=== PATIENT | female | born 1965 | race Caucasian/White ===

== ENCOUNTER 2019-03-21 07:38 | Inpatient (IN) ==
--- NOTE | 2019-03-10 10:59 | Anesthesiology Consultation ---
Date of Service March 10, 2019 Assessment & Plan (1) Encounter for pre-operative examination: - Check test AM DOS - Patient requests avoiding narcotics for post-op pain management if possible. Chart Review Chart Review: Acceptable Risk for Surgery and Patient seen in Pre Admission Testing Teaching & Discussion Pre-Anesthesia Teaching/Discussion Notes: Instructed NPO after midnight before surgery,except medications with 15 cc of water. Medication instructions provi ded according to the PAT guidelines. History Surgery Operation Date: 03/21/19 13:50 Proposed Procedures p Total Abdominal Hysterectomy - Mason Mathew MD Height/Weight Height: 5 ft Weight: 79.8 kg Allergies Allergy/AdvReac Type Severity Reaction Status Date / Time meperidine Allergy Unknown Hives Verified 03/03/19 12:12 morphine Allergy Unknown ?Hives Verified 03/10/19 11:14 codeine Allergy Hives Verified 03/10/19 11:14 Medications Home Medications Medication Instructions Recorded Confirmed Last Taken Thyroid Supplement 1 tab PO HS 03/03/19 Unknown calcium carbonate-vitamin D3 1 tab PO QAM 03/03/19 03/03/19 Unknown [Calcium 500 + D] glucosamine sulfate [Glucosamine] 500 mg PO QPM 03/03/19 03/03/19 Unknown turmeric 1 cap PO QAM 03/03/19 03/03/19 Unknown Past Medical History Medical History Fibroids Hypothyroidism Obesity Past Surgical History Surgical History History of arthroscopy KNEE History of section x3 History of cholecystectomy Past Anesthesia History No Family Hx of Anesthesia Complications and Other Per patient, [id number] told the patient that she had difficulty with anesthesia induction with c/s done emergently under GA but no issues with subsequent surgeries. History of PONV No Motion Sickness Screening History of Motion Sickness: Yes Social History Smoking Status: Never smoker Do You Dip or Chew Tobacco: No Hx Alcohol Use: Yes Alcohol type: hard liquor alcohol intake frequency: a few times a month Hx Substance Use: No substance use type: does not use Exercise / Class Metabolic Activity II 4-5 Yardwork/Stairs/Walk up hill Review of Systems Patient denies chest pain, shortness of breath, dyspnea on exertion, cough, wheezing, palpitations. Physical Exam Vital Signs VITALS BP 124/81 P 80 TEMP 98.2 SP02 94%RA RESP 18 PHYSICAL Full neck and c-spine range of motion. Full TMJ range of motion. TMD 3 finger breaths Mallampati Score 2 Dentition: upper front left permanent implant Lungs: clear throughout to auscultation Cardiac: regular rate and rhythm, no murmurs noted Spine: normal Carotid arteries: negative bruit Extremities: no edema Testing Electrocardiogram Date: 03/10/19 NSR at 73bpm. Laboratory Results 03/10/19 11:27 03/10/19 11: Blood Type A Positive 03/10/19 11: Antibody Screen NEGATIVE 03/10/19 11: PT 10.1 Seconds (9.0-12.0) 03/10/19 11: INR 1.0 (0.9-1.1) 03/10/19 11: APTT 23.6 Seconds (21.0-31.0) 03/10/19 11:27
--- NOTE | 2019-03-10 11:00 | PAT Medication Instructions ---
Medication Instructions Date of Service March 10, 2019 Home Medications Thyroid Supplement 1 tab PO HS calcium carbonate-vitamin D3 1 tab PO QAM glucosamine sulfate [Glucosamine] 500 mg PO QPM turmeric 1 cap PO QAM STOP taking 2 weeks before surgery (or as soon as possible if surgery is within 2 weeks) glucosamine sulfate [Glucosamine] 500 mg PO QPM turmeric 1 cap PO QAM DO NOT take the morning of surgery calcium carbonate-vitamin D3 1 tab PO QAM Take evening before surgery Thyroid Supplement 1 tab PO HS Other Notes If you have any questions please call us at [phone] or [phone] or [phone] or [phone]
[2019-03-10 11:52] LABS: Basophils # (auto) 0.04 K/uL (0-0.2); Basophils % (auto) 0.5 %; Eosinophils # (auto) 0.11 K/uL (0-0.5); Eosinophils % (auto) 1.5 %; Hemoglobin 13.5 g/dL (12.0-16.0); Immature Granulocytes # (auto) 0.03 K/uL (0.00-0.02); Immature Granulocytes % (auto) 0.4 %; Lymphocytes # (auto) 1.89 K/uL (1.2-3.4); Lymphocytes % (auto) 25.1 %; Mean Corpuscular Hgb Conc 34.6 g/dL (32-36); Mean Corpuscular Volume 90.1 fL (80-100); Mean Platelet Volume 9.1 fL (7.4-10.4); Monocytes # (auto) 0.77 K/uL (0.11-0.59); Monocytes % (auto) 10.2 %; Neutrophils % (auto) 62.3 %; Platelet Count 267 K/uL (130-400); RDW Coefficient of Variation 13.3 % (11.5-14.5); RDW Standard Deviation 43.9 fL (36.4-46.3); Red Blood Count 4.33 M/uL (4.2-5.4); White Blood Count 7.54 K/uL (4.8-10.8)
[2019-03-10 12:06] LABS: Partial Thromboplastin Ratio 0.9; Partial Thromboplastin Time 23.6 Seconds (21.0-31.0); Prothrombin Time 10.1 Seconds (9.0-12.0)
--- NOTE | 2019-03-10 12:45 | History and Physical Report ---
DATE OF ADMISSION: 03/21/2019 CHIEF COMPLAINT: Pelvic pain, heavy vaginal bleeding with clotting, irregular bleeding. HISTORY OF PRESENT ILLNESS: The patient is a 54-year-old 5, para 3, who has had 1 ectopic, 1 spontaneous AB. She has had 3 sections. She has problems with heavy vaginal bleeding, clotting, severe cramps that have been going on for over 6 months. She has difficulty functioning when she has these heavy periods. Periods are lasting for over 5 days. She had a transvaginal ultrasound on 02/18/2019 which revealed an enlarged uterus with multiple fibroids and we were unable at that time to evaluate the endometrial stripe because of the shadowing out from the fibroid. She also complains of severe back pain with her periods. Presently, she is being scheduled for total abdominal hysterectomy with preservation of both ovaries. PAST MEDICAL HISTORY: Three children in good health. ALLERGIES: She has no drug allergies. No history of rheumatic fever, heart disease, heart murmur, diabetes, tuberculosis. PAST SURGICAL HISTORY: Had 3 C-sections and ectopic , wisdom teeth removed. SOCIAL HISTORY: No smoking, no excessive alcohol intake. 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 FAMILY HISTORY: Mom is 74, has an aortic aneurysm, has bad knees. Father at age 76, prostate cancer. One brother, diabetic, age 54. One sister 56 in good general health and 1 sister 57 in good general health. REVIEW OF SYSTEMS: She has occasional migraine headaches. PHYSICAL EXAMINATION: GENERAL: Well-developed, well-nourished 54-year-old white female, alert, oriented x3 and cooperative in no acute distress, appeared her stated age. EYES: Conjunctivae are pink. Sclerae white, no evidence of jaundice. EARS: Had normal light reflex bilaterally. NOSE: Had normal mucosa. Septum is midline. There were no polyps. THROAT: Had no erythema or evidence of infection. Teeth are in good state of repair. HEAD: Normocephalic, normal distribution of hair. NECK: Supple. Trachea midline. Thyroid is not enlarged. No adenopathy appreciated. Both carotids are of good intensity. CHEST: Clear to auscultation and percussion. No wheezes, rales or rhonchi appreciated. HEART: Had a regular rhythm. S1, S2 are normal. BREASTS: Normal. ABDOMEN: Soft and nontender. There is a well-healed Pfannenstiel incision. PELVIC: Revealed a normal-appearing cervix. Uterus was firm, irregular, 10-11 weeks' gestational size, tender. MUSCULOSKELETAL: Revealed no calf tenderness. IMPRESSIONS OF THIS CASE: Status post wisdom teeth removal, status post 3 C-sections, status post removal of ectopic and symptomatic fibroid uterus, pelvic pain.
[2019-03-10 13:06] LABS: Calcium 9.1 mg/dl (8.5-10.1); Creatinine Clr Calc Pharmacy 100.9 ml/min; Est GFR (African American) 120.8; Est GFR (Non-African American) 104.2; Potassium 3.9 mmol/L (3.5-5.1)
[~2019-03-21 07:38] MED LIST: LR 15ML/HR IV SCH
[2019-03-21] MEDS ORDERED: ROCURONIUM BROMIDE 10 MG/ML 5 ML VIAL ONE (09:51)
[2019-03-21] MEDS ORDERED: ONDANSETRON INJ 2 MG/ML 2 ML VIAL ONE (09:51)
[2019-03-21] MEDS ORDERED: MIDAZOLAM HCL 1 MG/ML 2ML VIAL ONE ×2 (09:51→10:05)
[2019-03-21] MEDS ORDERED: LIDOCAINE HCL 2% 2 ML VIAL/AMP(20MG/ML) INFIL ONE (09:51)
[2019-03-21] MEDS ORDERED: fentaNYL citrate 100 MCG/2 ML VIAL ONE ×2 (09:51→12:22)
[2019-03-21] MEDS ORDERED: PROPOFOL IV EMULSION 10 MG/ML 20 ML VIAL IV ONE (09:51)
[2019-03-21] MEDS ORDERED: DEXAMETHASONE SOD INJ 4 MG/ML VIAL ONE (09:51)
[2019-03-21] MEDS ORDERED: cefOXitin 2,000 MG in DEXTROSE 5% 50 ML IV STA (10:03)
--- NOTE | 2019-03-21 10:03 | History & Physical Bridge Note ---
Date of Service March 21, 2019 History & Physical Bridge Note I have examined the patient, reviewed the History & Physical and in the interval since the performance of the History & Physical I have noted the following changes of clinical significance: no changes noted
[2019-03-21] MEDS ORDERED: MoRPHine SULFATE PF 1 MG/ML 10 ML AMP/VIAL ONE (10:25)
[2019-03-21] MEDS ORDERED: cefOXitin 2,000 MG in DEXTROSE 5% 50 ML IV SCH (11:00)
[2019-03-21] MEDS ORDERED: ONDANSETRON INJ 2 MG/ML 2 ML VIAL IV PRN (11:06)
[2019-03-21] MEDS ORDERED: LACTATED RINGER'S 500 ML IV PRN (11:06)
[2019-03-21] MEDS ORDERED: KETOROLAC 30 MG/ML VIAL IV PRN (11:06)
[2019-03-21] MEDS ORDERED: NALOXONE HCL 0.08 MG in SYRINGE 1.8 ML IV PRN (11:06)
[2019-03-21] MEDS ORDERED: NALBUPHINE HCL INJ 10 MG/ML AMP IV PRN (11:06)
[2019-03-21] MEDS ORDERED: NALOXONE HCL 1 MG in SODIUM CHLORIDE 0.9% 1000ML 1,000 ML IV PRN (11:06)
[2019-03-21] MEDS ORDERED: ePHEDrine sulfate 50 MG/ML AMP IV PRN (11:06)
[2019-03-21] MEDS ORDERED: HYDROmorphone INJ 0.5 MG/0.5 ML SYR IV PRN (11:06)
[2019-03-21] MEDS ORDERED: MoRPHine SULFATE PF 1 MG/ML 10 ML AMP/VIAL INT SPINAL ONE (11:06)
[2019-03-21] MEDS ORDERED: DiphenhydrAMINE HCL 50 MG/ML VIAL IV PRN (11:06)
[2019-03-21] MEDS ORDERED: NALOXONE HCL 0.4 MG/1 ML VIAL/CARP IV PRN (11:06)
[2019-03-21] MEDS ORDERED: SODIUM CHLORIDE 0.9% 1000ML 1,000 ML IV SCH (11:15)
[2019-03-21] MEDS ORDERED: DC INTRASPINAL MORPHINE SCH (11:15)
[2019-03-21] MEDS ORDERED: NO NARCOTICS OR SEDATIVES SCH (11:15)
[2019-03-21] MEDS ORDERED: BISACODYL 10 MG SUPP PR PRN (13:07)
[2019-03-21] MEDS ORDERED: SENNA 8.6 MG TAB PO PRN (13:07)
[2019-03-21] MEDS ORDERED: MAGNESIUM HYDROXIDE SUSP 30 ML UDC PO PRN (13:07)
[2019-03-21] MEDS ORDERED: PROMETHAZINE HCL 6.25 MG in SODIUM CHLORIDE 0.9% 50 ML IV STA (13:20)
--- NOTE | 2019-03-21 14:42 | Anesthesiology Progress Note ---
Date of Service March 21, 2019 Anesthesia Post Procedure Vital Signs Vital Signs: Temp Pulse Pulse Pulse Resp BP BP 03/21/19 14:35 36.9 C 83 18 116/76 03/21/19 14:05 36.7 C 89 18 123/73 03/21/19 13:55 94 H 18 114/67 03/21/19 13:52 36.4 C L 03/21/19 13:51 79 21 03/21/19 13:50 77 18 112/68 03/21/19 13:46 78 17 03/21/19 13:45 79 16 114/74 03/21/19 13:41 79 15 03/21/19 13:40 79 16 115/69 03/21/19 13:35 81 15 03/21/19 13:30 82 23 117/74 03/21/19 13:26 78 13 119/65 03/21/19 13:25 90 20 03/21/19 13:22 87 20 03/21/19 13:21 84 16 03/21/19 13:20 84 18 03/21/19 13:16 84 13 113/71 03/21/19 13:15 90 20 03/21/19 13:11 90 18 03/21/19 13:10 88 13 121/75 03/21/19 13:06 83 14 03/21/19 13:05 93 H 16 111/71 03/21/19 13:01 83 17 03/21/19 13:00 84 16 108/74 03/21/19 12:57 82 16 03/21/19 12:56 37.3 C 89 87 15 109/69 109/69 03/21/19 08:10 37 C 78 20 119/74 Pulse Ox 03/21/19 14:35 96 03/21/19 14:05 95 03/21/19 13:55 100 03/21/19 13:52 99 03/21/19 13:51 99 03/21/19 13:50 100 03/21/19 13:46 100 03/21/19 13:45 98 03/21/19 13:41 100 03/21/19 13:40 100 03/21/19 13:35 99 03/21/19 13:30 100 03/21/19 13:26 98 03/21/19 13:25 100 04/26/19 13:22 91 03/21/19 13:21 91 03/21/19 13:20 93 03/21/19 13:16 94 03/21/19 13:15 98 03/21/19 13:11 100 03/21/19 13:10 100 03/21/19 13:06 100 03/21/19 13:05 100 03/21/19 13:01 100 03/21/19 13:00 100 03/21/19 12:57 03/21/19 12:56 03/21/19 08:10 97 Pain Intensity Abdomen: Pain Intensity: 0 Notes Mental Status: alert / awake / arousable and participated in evaluation Patient Amnestic to Procedure: Yes Nausea / Vomiting: adequately controlled Pain: adequately controlled Airway Patency, RR, SpO2: stable & adequate BP & HR: stable & adequate Hydration State: stable & adequate Anesthetic Complications: no major complications apparent and Pt Satisfied with anesthetic care
[2019-03-21] MEDS: D5W AND LACTATED RINGERS 1,000 ML IV SCH (19:18)
--- NOTE | 2019-03-21 22:32 | Operative Report ---
DATE OF OPERATION: 03/21/2019 PROCEDURE: Total abdominal hysterectomy. INDICATIONS FOR SURGERY: Enlarged fibroid uterus, postmenopausal bleeding. PREOPERATIVE DIAGNOSIS: Symptomatic fibroids, pathology pending. SURGEON: Amando Mathew MD ESTIMATED BLOOD LOSS: 100 mL. ANESTHESIA: Spinal narcotics and general. OPERATIVE FINDINGS AND PROCEDURE: The patient was brought to the OR table, correctly identified by armband and conversation. Spinal narcotics were administered, then general anesthesia was administered. Perineum and vagina were painted with Betadine paint. Catheter was used to empty the bladder, connected to gravity drainage. Lower abdomen was prepped with an alcohol based sterilizing solution, draped in the usual sterile fashion. A midline scar was excised from the abdomen. Incision was carried down to the anterior fascia by sharp dissection. Hemostasis was secured by electrocauterization. Fascia was incised vertically. Peritoneum was entered and then an O'Vic-O'Evans self-retraining retractor was placed into the uterine cavity. A bladder blade was placed and then a several moist laparotomy pads were used to retract the intestines and provide adequate exposure of the pelvic cavity. A large fibroid uterus was visualized consistent in size with a 14-15 weeks' gestational size uterus. Following exposure of the uterus, the uterus itself was grasped with a double tooth tenaculum and delivered through the incision. The round ligaments on either side were suture ligated distally, clamped approximately and then cut. Incision was made above the vesicouterine fold. The bladder had advanced on the lower uterine segment due to 2 previous C-sections where to carefully take down the bladder. After this, posterior leaves of the broad ligament on either side were punched through bluntly and the ovarian ligament was doubly ligated with a silk tie and then a clamp was clamped near the fundus of the uterus. The adnexa were cut free. The uterine vessels were skeletonized and then clamped with a curved Isa, cut with a stump and then doubly ligated with a chromic gut suture. Cardinal ligaments were clamped serially by advancing the bladder then serially sliding off the cervix, cutting the cardinals with a stump and ligating with a chromic gut suture. This was done in 3 steps because of the length of the cardinal ligament. The cervix was then shelled out with electrocautery, thus excising surgical specimen consisting of uterus and cervix, multiple fibroids. The angles of the vaginal cuff were suture ligated. The stumps of the cardinal ligaments on either side with a chromic gut suture, [id number] was used to approximate the vaginal mucosa, anterior to posterior on either edge of the cardinal ligament. Then, the middle of the vaginal mucosa was whipstitched open with a continuous interlocking suture of chromic catgut. The [place] drain with a safety pin was placed in the vagina. The other end was placed into the cul-de-sac. The round ligaments were brought down and tied into the vaginal cuff for support. Then, I reperitonealized the edges tacking both ovaries up high on the lateral pelvic wall and approximating the peritoneum front to back. Following this, we irrigated. Hemostasis was excellent. We then closed the abdominal wall. The abdominal wall was closed in layer. The peritoneum was closed with continuous suture of chromic catgut. The fascia was closed with 2 sutures of PDS, one anchored at the top of the fascial defect, the other anchored at the bottom of the fascial defect and the PDS was run from the bottom up to the middle and from the top down to the middle and then the sutures were tied to each other. The subcutaneous tissue was freed up. I used about 6 mattress sutures of silk to approximate the skin edges along with staple clips. Following this, hemostasis was good. The patient tolerated the procedure well. Urine output was adequate. I attest to the content of the Intraoperative Record and any orders documented therein. Any exception s are noted below.
[2019-03-22] MEDS ORDERED: Nursing to Pharmacy Communication ONE (03:00)
[2019-03-22] MEDS: D5W AND LACTATED RINGERS 1,000 ML IV SCH ×2 (03:00→11:09)
[2019-03-22] MEDS ORDERED: KETOROLAC 30 MG/ML VIAL IV PRN (05:06)
[2019-03-22] MEDS ORDERED: ONDANSETRON INJ 2 MG/ML 2 ML VIAL IV PRN (05:06)
[2019-03-22 06:10] LABS: Hematocrit (blood only) 33.6 % (37-47); Hemoglobin 11.3 g/dL (12.0-16.0); Immature Granulocytes # (auto) 0.03 K/uL (0.00-0.02); Immature Granulocytes % (auto) 0.2 %; Lymphocytes # (auto) 1.63 K/uL (1.2-3.4); Lymphocytes % (auto) 12.2 %; Mean Corpuscular Hgb Conc 33.6 g/dL (32-36); Mean Corpuscular Volume 90.3 fL (80-100); Mean Platelet Volume 8.8 fL (7.4-10.4); Monocytes # (auto) 1.09 K/uL (0.11-0.59); Monocytes % (auto) 8.2 %; Neutrophils # (auto) 10.56 K/uL (1.4-6.5); Neutrophils % (auto) 79.4 %; Platelet Count 298 K/uL (130-400); RDW Coefficient of Variation 13.4 % (11.5-14.5); RDW Standard Deviation 44.3 fL (36.4-46.3); Red Blood Count 3.72 M/uL (4.2-5.4); White Blood Count 13.31 K/uL (4.8-10.8)
--- NOTE | 2019-03-22 10:18 | Obstetrical Progress Note ---
Date of Service March 22, 2019 Physical Exam Physical Exam: abdomen soft and non tender bowel sounds hypoactive bandage removed incision is clean and dry no calf tenderness vaginal bleeding scant Results & Data Vital Signs (Past 12 Hours) Vital Signs Temp Pulse Resp BP Pulse Ox 03/22/19 07:40 36.7 C 70 18 112/71 96 03/22/19 05:15 18 99 03/22/19 05:10 37 C 82 18 118/78 99 03/22/19 04:45 16 96 03/22/19 03:50 16 98 03/22/19 02:55 16 97 03/22/19 01:45 16 97 03/22/19 00:45 16 97 03/21/19 23:45 36.6 C 90 16 131/79 96
[2019-03-22] MEDS: IBUPROFEN 600 MG TAB PO PRN ×3 (12:32→23:22)
[2019-03-23] MEDS: IBUPROFEN 600 MG TAB PO PRN ×2 (05:43→10:21)
[2019-03-23 06:01] LABS: Basophils # (auto) 0.02 K/uL (0-0.2); Basophils % (auto) 0.2 %; Eosinophils # (auto) 0.04 K/uL (0-0.5); Eosinophils % (auto) 0.4 %; Hematocrit (blood only) 32.9 % (37-47); Hemoglobin 11.2 g/dL (12.0-16.0); Immature Granulocytes # (auto) 0.02 K/uL (0.00-0.02); Immature Granulocytes % (auto) 0.2 %; Lymphocytes # (auto) 1.51 K/uL (1.2-3.4); Lymphocytes % (auto) 16.5 %; Mean Corpuscular Volume 90.6 fL (80-100); Mean Platelet Volume 8.8 fL (7.4-10.4); Monocytes # (auto) 1.09 K/uL (0.11-0.59); Monocytes % (auto) 11.9 %; Neutrophils # (auto) 6.45 K/uL (1.4-6.5); Neutrophils % (auto) 70.8 %; Platelet Count 304 K/uL (130-400); RDW Coefficient of Variation 13.5 % (11.5-14.5); RDW Standard Deviation 44.7 fL (36.4-46.3); Red Blood Count 3.63 M/uL (4.2-5.4); White Blood Count 9.13 K/uL (4.8-10.8)
--- NOTE | 2019-03-23 10:01 | Obstetrical Progress Note ---
Date of Service March 23, 2019 Physical Exam Physical Exam: abdomen soft and non tender bowel sounds normal passing flatus incision is clean and dry no calf tenderness ambulating well emi drain removed Results & Data Vital Signs (Past 12 Hours) Vital Signs Temp Pulse Pulse Resp BP BP Pulse Ox 03/23/19 08:00 36.4 C L 85 79 18 147/88 H 136/86 97 03/23/19 00:30 117/73 03/22/19 23:20 36.8 C 90 18 148/98 H
--- NOTE | 2019-03-23 22:28 | Discharge Summary ---
Mrs. Akhtar is a 54-year-old who experienced postmenopausal bleeding. Evaluation showed a large fibroid uterus. She also had been experiencing over a year of lower back pain. The day of admission, she was taken to the OR where under general anesthesia along with spinal narcotics, she underwent total abdominal hysterectomy with preservation of both ovaries. At the time of surgery, she was noted to have a large uterus consistent with a 12- to 14-week gestational size with multiple fibroids. Her preoperative hemoglobin was 13.5, hematocrit 39. Postoperatively, hemoglobin fell to 11.2 and hematocrit 32.9. We placed a [place] drain in the cuff at the time of surgery. Postoperatively she did well. Her bandage was removed the first postoperative day. The second postoperative day, the Aron drain was removed. At the time of discharge, she was ambulating well. Bowel sounds were relatively normal. She was passing gas. Her pain was controlled with just nonnarcotic pain medications. She was given the usual instructions to call the office if she had a temperature over 100, if she had any heavy bleeding, and to return in a week for removal of some of her abdominal sutures and alek.
--- OUTSIDE RECORDS SUMMARY | 2019-03-24 21:51 | External Medical Summary | Continuity of Care Document ---
:1965 Author Name Issa Quintero, Provider Address Unavailable Unavailable , Care Team Providers Name Role Phone Dandre Ng [email or web address] [place] Dandre Ng M.D. Unavailable Unavailable Unavailable Unavailable Unavailable Problems Cervical radiculopathy at C5 (723.4) (M54.12) Insomnia (780.52) (G47.00) Hypertriglyceridemia (272.1) (E78.1) Hypothyroidism (244.9) (E03.9) Allergies and Adverse Reactions Bactrim TABS (Allergy) Reaction: Hives Codeine Derivatives (Allergy) Reaction: Hives Demerol TABS (Allergy) Reaction: Hives Morphine Derivatives (Allergy) Reaction: Hives Medications Levothyroxine Sodium 75 MCG Oral Tablet; 1 tab daily Ingrid Vaughn Start: 30-Jan-2017 Quantity: 60 Refills: 1 Multi For Her Oral Capsule; TAKE 2 CAPSULE Daily Start: 28-Sep-2016 Refills: 0 Procedures History of Knee Arthroscopy (Therapeutic) Status: Completed Immunizations Influenza On: 15-Oct-2013 11:16 Lot #: [id number], [employer] Influenza On: 24-Sep-2014 0:00 Lot #: [id number], [employer] Influenza On: 27-Sep-2015 10:03 Lot #: [id number], [employer] Influenza On: 28-Sep-2016 8:45 Lot #: [id number], [employer] Family History Brother Family history of Obesity Status: Active Family history of Obstructive Sleep Apnea Status: Active Family history of Type 2 Diabetes Mellitus Status: Active Social History - Smoking Status Never smoker Plan of Treatment Planned Encounters Appointment; Dandre Ng M.D. Start: 28-Aug-2019 15:30 Re quest Planned Observations Planned Goals not documented Results No Known Results Results not documented Encounters Appointment; Dandre Ng M.D. 19-Mar-2018 15:00 Encounter Diagnosis: Problem not documented Appointment; Dander Ng M.D. 05-Oct-2017 8:00 Encounter Diagnosis: Problem not documented Appointment; Dandre Ng M.D. 28-Aug-2019 15:30 Encounter Diagnosis: Problem not documented
== END 2019-03-23 10:52 | disposition home or self-care (01) | DRG 743 ==
LOC: 4N 07:38 → ASU 07:38